=== PATIENT | male | born 1985 | race Caucasian/White ===

== ENCOUNTER 2019-04-21 09:31 | Emergency (ER) | payer SELFPAY ==
[2019-04-21] MEDS ORDERED: Lidocaine 1% 20 ML MDV ONE (10:00)
== END 2019-04-21 10:42 | disposition home or self-care (01) ==
LOC: MADERS 09:31
DX: N49.2 Inflammatory disorders of scrotum (principal); L04.9 Acute lymphadenitis, unspecified; I10 Essential (primary) hypertension; F17.210 Nicotine dependence, cigarettes, uncomplicated
CPT/HCPCS: 54700; J2001

== ENCOUNTER 2022-10-28 22:24 | Emergency (ER) | payer OTHER, SELFPAY ==
[~2022-10-28 22:24] MED LIST: Iopamidol 370 76% 100 ML VIAL ONE
[2022-10-28] MEDS ORDERED: HYDROmorphone 0.5 MG/0.5 ML SYRINGE ONE (22:47)
[2022-10-28] MEDS ORDERED: Boostrix 0.5 ML (Tdap) VIAL (>/=7 yrs of age) ONE (22:59)
[2022-10-28] MEDS ORDERED: Ondansetron PF 4 MG/2 ML Vial ONE (22:59)
[2022-10-28 23:01] LABS: #Basophils 0.1 thou/uL (0.0-0.2); #Eosinphils 0.2 thou/uL (0.0-0.7); #Monocytes 1.1 thou/uL (0.11-0.59); #Neutrophils 13.9 thou/uL (1.40-6.50); %Basophils 0.7 % (0.0-1.0); %Eosinophils 0.9 % (0.0-10.0); %Lymphocytes 16.2 % (21.0-51.0); %Monocytes 5.8 % (0.0-10.0); %Neutrophils 76.4 % (42.0-75.0); Hemoglobin 15.5 g/dL (14.0-18.0); Mean Corpuscular HGB CONC 34.3 g/dL (32.0-36.0); Mean Corpuscular Hemoglobin 31.3 pg (27.0-31.0); Mean Corpuscular Volume 91.4 fl (78.0-98.0); Mean Platelet Volume 8.4 fL (7.4-10.4); Platelet Count 247 10x3/uL (130-400); RBC Distribution Width 12.4 % (11.5-14.5); Red Blood Cell (RBC) Count 4.95 mill/uL (4.70-6.10); White Blood Cell (WBC) Count 18.2 10x3/uL (4.8-10.8)
[2022-10-28 23:13] LABS: INR-International Normal Ratio 1.2; Prothrombin Time 15.5 sec (12.0-14.7)
[2022-10-28 23:21] LABS: ALT (SGPT) 65 U/L (8-55); AST (SGOT) 64 U/L (5-34); Albumin 4.2 g/dL (3.5-5.0); Alcohol Less than 10 mg/dL (Less than 10); Alkaline Phosphatase 67 U/L (40-110); Anion Gap 13 mmol/L (10-20); BUN (Urea Nitrogen) 8 mg/dL (8.9-20.6); Bilirubin, Total 0.3 mg/dL (0.2-1.2); Calc. Creatinine Clearance 0 mL/min (70-130); Calcium 9.4 mg/dL (7.8-10.44); Carbon Dioxide 25 mmol/L (22-29); Chloride 104 mmol/L (98-107); Estimated GFR 102; Globulin 2.2 g/dL (2.4-3.5); Glucose 132 mg/dL (70-105); Lipase 17 U/L (8-78); Potassium 3.7 mmol/L (3.5-5.1); Protein, Total 6.4 g/dL (6.0-8.3); Sodium 138 mmol/L (136-145)
[2022-10-29] MEDS ORDERED: HYDROmorphone 0.5 MG/0.5 ML SYRINGE ONE (00:01)
== END 2022-10-29 00:07 | disposition short-term general hospital (02) ==
LOC: MADERS 22:24
DX: S72.001A Fracture of unspecified part of neck of right femur, initial encounter for closed fracture (principal); I10 Essential (primary) hypertension; F17.210 Nicotine dependence, cigarettes, uncomplicated; V89.2XXA Person injured in unspecified motor-vehicle accident, traffic, initial encounter
CPT/HCPCS: 70450; 71260; 72125; 74177; 80053; 80307; 83605; 83690; 85025; 85610; 85730; 86850; 86900; 86901; 90471; 90715; 96374; 96375; 96376; G0390; J1170; J2405; Q9967